=== PATIENT | female | born 2000 | race Two or more races ===

== ENCOUNTER → 2019-03-30 | Outpatient (CLI) | payer SELFPAY ==
--- NOTE | 2019-03-30 14:36 | RADIOLOGY REPORT (SQ) ---
EXAM DESCRIPTION: U/S OB 14+ TRNABD 1GES W/O DOP COMPLETED DATE/TIME: 03/30/2019 2:11 pm REASON FOR STUDY: Z34.82 ENCOUNTER FOR SUPRVSN OF NORMAL , SECOND TRIMESTER Z34.82 ENCOUNT ER FOR SUPRVSN OF NORMAL , SECOND TRI COMPARISON: None. TECHNIQUE: Static and Dynamic grayscale imaging performed of gravid uterus using transabdominal appr oach. Additional selected color Doppler and spectral images recorded. All stored on PACS. LIMITATIONS: None. FINDINGS: FETUSES SEEN:1 EGA: 16 weeks 2 days Calculated using BPD,FL,HC,AC documented on images. Clinical dates are 17 weeks 4 days. CRYSTAL: 09/12/2019 EFW: 150 grams PERCENTILE: 90 ABBEY: Adequate amount. PLACENTA: Posterior in location. Heterogeneous in echogenicity. PRESENTATION: Cephalic. ANATOMY: HEART RATE: 140 beats per minute. FOUR CHAMBER HEART: Not visualized. THREE VESSEL CORD: Not visualized. CORD INSERTION: Not visualized. KIDNEYS AND BLADDER: The kidneys are not visualized. Bladder is unremarkable. STOMACH: Visualized. Appears normal. SPINE: Not visualized. BRAIN AND LATERAL VENTRICLES: Not visualized. OTHER: No other significant finding. MATERNAL ADNEXA: Normal in appearance. CERVICAL LENGTH: 3.2 cm. Closed. OTHER: No other significant finding. IMPRESSION: LIVING INTRAUTERINE . ESTIMATED GESTATIONAL AGE 16 weeks 2 days. NO VISUALIZED ANOMALIES. Trimester of : Second trimester - 13 weeks 1 day to 27 weeks 6 days. TECHNICAL DOCUMENTATION: JOB ID: [id number] [employer]- All Rights Reserved Reading location - IP/workstation name: [email or web address]
== END ==
LOC: RAD 13:12
PROVIDERS: ATTEND Midwife
DX: Z34.82 Encounter for supervision of other normal pregnancy, second trimester (principal)
CPT/HCPCS: 76805

== ENCOUNTER → 2019-04-21 | Outpatient (CLI) | payer SELFPAY ==
--- NOTE | 2019-04-21 15:16 | RADIOLOGY REPORT (SQ) ---
EXAM DESCRIPTION: U/S OB 14+ TRNABD 1GES W/O DOP COMPLETED DATE/TIME: 04/21/2019 2:55 pm REASON FOR STUDY: Z34.82 ENCOUNTER FOR SUPRVSN OF NORMAL , SECOND TRIMESTER Z34.82 ENCOUNT ER FOR SUPRVSN OF NORMAL , SECOND TRI COMPARISON: 03/30/2019 TECHNIQUE: Static and Dynamic grayscale imaging performed of gravid uterus using transabdominal appr oach. Additional selected color Doppler and spectral images recorded. All stored on PACS. LIMITATIONS: None. FINDINGS: FETUSES SEEN:1 EGA: 19 weeks 2 days. Calculated using BPD,FL,HC,AC documented on images. Estimated clinical dates i s 20 weeks 5 days. CRYSTAL: 09/13/2019 EFW: 286 g grams PERCENTILE: Not applicable. Fetus less than or equal to 20 weeks gestation. LVP: 4.1 cm. PLACENTA: Posterior. GRADE: I PRESENTATION: Cephalic. ANATOMY: HEART RATE: 125 beats per minute. FOUR CHAMBER HEART: Visualized. THREE VESSEL CORD: Yes. CORD INSERTION: Visualized. KIDNEYS AND BLADDER: Visualized. Appear normal. STOMACH: Visualized. Appears normal. SPINE: Normal as visualized. BRAIN AND LATERAL VENTRICLES: Visualized. Appear normal. OTHER: No other significant finding. MATERNAL ADNEXA: Maternal ovaries not visualized. CERVICAL LENGTH: 4.0 cm. Closed. OTHER: No other significant finding. IMPRESSION: LIVING INTRAUTERINE . ESTIMATED GESTATIONAL AGE 19 WEEKS 2 DAYS. NO VISUALIZED ANOMALIES. Trimester of : Second trimester - 13 weeks 1 day to 27 weeks 6 days. TECHNICAL DOCUMENTATION: JOB ID: [id number] [employer]- All Rights Reserved Reading location - IP/workstation name: [email or web address]
== END ==
LOC: RAD 13:09
PROVIDERS: ATTEND Midwife
DX: Z34.82 Encounter for supervision of other normal pregnancy, second trimester (principal)
CPT/HCPCS: 76805

== ENCOUNTER 2019-08-28 22:09 | Outpatient (CLI) | payer SELFPAY ==
[2019-08-28 22:53] LABS: APPEARANCE,URINE CLEAR; BILIRUBIN,URINE NEGATIVE (NEGATIVE); COLOR,URINE STRAW; GLUCOSE, URINE NEGATIVE (NEGATIVE); KETONES,URINE NEGATIVE (NEGATIVE); LEUKOCYTE ESTERASE,URINE NEGATIVE (NEGATIVE); NITRITE,URINE NEGATIVE (NEGATIVE); PROTEIN,URINE NEGATIVE (NEGATIVE); URINE SPECIFIC GRAVITY 1.004; UROBILINOGEN,URINE NEGATIVE mg/dL (<2.0)
[2019-08-28 23:07] LABS: URINE AMPHETAMINES SCREEN NEGATIVE; URINE BARBITURATES SCREEN NEGATIVE; URINE BENZODIAZEPINES SCREEN NEGATIVE; URINE COCAINE SCREEN NEGATIVE; URINE MARIJUANA (THC) SCREEN NEGATIVE; URINE METHADONE SCREEN NEGATIVE; URINE PHENCYCLIDINE SCREEN NEGATIVE
--- NOTE | 2019-08-29 01:56 | Non Stress Test Report ---
Non Stress Test Datetime Report Generated by CPN: 08/29/2019 01:56 DEMOGRAPHIC EGA NST: 39.2 INDICATION Indication for Study (NST) Other: Ordered by provider URINE RESULTS Urine Protein, NST: Negative Urine Ketones - NST: Negative Urine Glucose - NST: Negative Urine Blood - NST: Negative MONITORING Monitor Explained: Monitor Explained; Test Explained; Patient Verbalized Understanding Time on Monitor: 08/29/2019 00:52 Time off Monitor: 08/29/2019 01:18 NST Duration: 26 NST INTERVENTIONS NST Interventions: PO Hydration Physician Notified NST: Dr. Castillo BABY A: [id number] BABY A Movement : Present Contraction Frequency : 2-6 FHR Baseline : 120 Accelerations : 15X15 Decelerations : None Variability : Moderate 6-25bpm NST Review: Meets Criteria for Reactive NST NST Review and Verified By : Nathen Lawrence RN NST Results: Reactive NST REPORT Report Trigger: Send Report
== END 2019-08-29 01:51 | disposition home or self-care (01) ==
LOC: LC 22:09
PROVIDERS: ATTEND Obstetrics & Gynecology Gynecology
PROC: 4A1HXCZ Monitoring of Products of Conception, Cardiac Rate, External Approach (ICD-10-PCS; principal; 2019-08-28)
DX: O47.1 False labor at or after 37 completed weeks of gestation (principal); Z3A.39 39 weeks gestation of pregnancy
CPT/HCPCS: 59025; 80307; 81005

== ENCOUNTER 2019-08-29 13:35 | Outpatient (CLI) | payer MEDICAID ==
--- NOTE | 2019-08-29 14:24 | Non Stress Test Report ---
Non Stress Test Datetime Report Generated by CPN: 08/29/2019 14:24 DEMOGRAPHIC Test Number: 2 EGA NST: 39.2 INDICATION Indication for Study (NST) Other: Vaginal spotting VITAL SIGNS Temperature - NST: 98.0 MONITORING Monitor Explained: Monitor Explained; Test Explained; Patient Verbalized Understanding Time on Monitor: 08/29/2019 13:58 Time off Monitor: 08/29/2019 14:19 NST Duration: 21 NST INTERVENTIONS NST Interventions: PO Hydration; Reposition Patient Physician Notified NST: Dr. Castillo BABY A: [id number] BABY A Movement : Present Contraction Frequency : Irregular FHR Baseline : 125 Accelerations : 15X15 Decelerations : None Variability : Moderate 6-25bpm NST Review: Meets Criteria for Reactive NST NST Review and Verified By : LASHAWN De La Cruz NST Results: Reactive NST REPORT Report Trigger: Send Report
[2019-08-29 14:26] LABS: APPEARANCE,URINE CLEAR; BILIRUBIN,URINE NEGATIVE (NEGATIVE); COLOR,URINE YELLOW; GLUCOSE, URINE NEGATIVE (NEGATIVE); KETONES,URINE NEGATIVE (NEGATIVE); LEUKOCYTE ESTERASE,URINE NEGATIVE (NEGATIVE); NITRITE,URINE NEGATIVE (NEGATIVE); PROTEIN,URINE NEGATIVE (NEGATIVE); UROBILINOGEN,URINE NEGATIVE mg/dL (<2.0)
[2019-08-29 14:49] LABS: URINE AMPHETAMINES SCREEN NEGATIVE; URINE BARBITURATES SCREEN NEGATIVE; URINE BENZODIAZEPINES SCREEN NEGATIVE; URINE COCAINE SCREEN NEGATIVE; URINE MARIJUANA (THC) SCREEN NEGATIVE; URINE METHADONE SCREEN NEGATIVE; URINE PHENCYCLIDINE SCREEN NEGATIVE
== END 2019-08-29 14:57 | disposition home or self-care (01) ==
LOC: LC 13:35
PROVIDERS: ATTEND Obstetrics & Gynecology Gynecology
PROC: 4A1HXCZ Monitoring of Products of Conception, Cardiac Rate, External Approach (ICD-10-PCS; principal; 2019-08-29)
DX: O26.853 Spotting complicating pregnancy, third trimester (principal); O47.1 False labor at or after 37 completed weeks of gestation; Z3A.39 39 weeks gestation of pregnancy
CPT/HCPCS: 59025; 80307; 81005

== ENCOUNTER 2019-09-05 08:36 | Inpatient (IN) | payer SELFPAY ==
--- NOTE | 2019-09-05 09:27 | Non Stress Test Report ---
Non Stress Test Datetime Report Generated by CPN: 09/05/2019 09:26 DEMOGRAPHIC EGA NST: 40.2 MONITORING Monitor Explained: Monitor Explained; Test Explained; Patient Verbalized Understanding Time on Monitor: 09/05/2019 08:50 Time off Monitor: 09/05/2019 09:25 NST Duration: 35 NST INTERVENTIONS NST Interventions: PO Hydration; Reposition Patient Physician Notified NST: DrUrban Tonia BABY A: [id number] BABY A Movement : Present Contraction Frequency : none FHR Baseline : 125 Accelerations : 15X15 Decelerations : None Variability : Moderate 6-25bpm NST Review: Meets Criteria for Reactive NST NST Review and Verified By : Jacquie Ríos RN NST Results: Reactive NST REPORT Report Trigger: Send Report
[2019-09-05 09:37] LABS: BACTERIA (WET MOUNT) 3+ BACTERIA SEEN; T.VAGINALIS (WET MOUNT) NO TRICHOMONAS SEEN; WBCS (WET MOUNT) 2+ WBCS SEEN; YEAST (WET MOUNT) NO YEAST SEEN
[2019-09-05] MEDS ORDERED: RINGERS SOLUTION,LACTATED 1,000 ML IV PRN (10:02)
[2019-09-05] MEDS ORDERED: RINGERS SOLUTION,LACTATED 1,000 ML IV ONE (10:02)
[2019-09-05] MEDS ORDERED: OXYTOCIN/NORMAL SALINE 20 UNIT/1,000 ML RTUINJ IV PRN ×2 (10:08→17:25)
[2019-09-05] MEDS ORDERED: OXYTOCIN 10 UNIT/ML VIAL ONE (10:37)
[2019-09-05] MEDS ORDERED: MISOPROSTOL 0.2 MG TABLET ONE (10:37)
[2019-09-05] MEDS ORDERED: OXYTOCIN/NORMAL SALINE 20 UNIT/1,000 ML RTUINJ ONE (10:38)
[2019-09-05] MEDS ORDERED: LIDOCAINE 1% INJ-PF (10 MG/ML) 30 ML SDV ONE (10:38)
[2019-09-05 10:43] LABS: ABSOLUTE BASOPHILS # (AUTO) 0.1 10^3/uL (0.0-0.2); ABSOLUTE EOSINOPHILS # (AUTO) 0.3 10^3/uL (0.0-0.6); ABSOLUTE LYMPHOCYTES (AUTO) 3.1 10^3/uL (0.5-4.7); ABSOLUTE MONOCYTES (AUTO) 0.7 10^3/uL (0.1-1.4); ABSOLUTE NEUT (AUTO) 5.6 10^3/uL (1.7-8.2); BASOPHILS % (AUTO) 0.7 % (0-2); EOSINOPHILS % (AUTO) 2.8 % (0-6); HEMATOCRIT 34.4 % (36.0-47.0); HEMOGLOBIN 11.3 g/dL (12.0-15.5); LYMPHOCYTES % (AUTO) 31.4 % (13-45); MEAN CORPUSCULAR HEMOGLOBIN 26.3 pg (27.0-33.4); MEAN CORPUSCULAR HGB CONC 32.8 g/dL (32.0-36.0); MEAN CORPUSCULAR VOLUME 80 fl (80-97); MONOCYTES % (AUTO) 7.7 % (3-13); PLATELET COUNT 181 10^3/uL (150-450); RED BLOOD COUNT 4.28 10^6/uL (3.72-5.28); RED CELL DISTRIBUTION WIDTH 14.8 % (11.5-14.0); SEGMENTED NEUTROPHILS % (AUTO) 57.4 % (42-78); TOTAL CELLS COUNTED % (AUTO) 100 %; WHITE BLOOD COUNT 9.8 10^3/uL (4.0-10.5)
[2019-09-05] MEDS ORDERED: GENTAMICIN SULFATE INJ 80 MG/2 ML VIAL ONE (10:53)
[2019-09-05] MEDS ORDERED: GENTAMICIN SULFATE INJ 80 MG/2 ML VIAL IV ONE (11:00)
[2019-09-05 11:01] LABS: CHLAM PCR NOT DETECTED (NOT DETECT)
--- NOTE | 2019-09-05 11:06 | RADIOLOGY REPORT (SQ) ---
EXAM DESCRIPTION: U/S OB LIMITED COMPLETED DATE/TIME: 09/05/2019 10:54 am REASON FOR STUDY: ABBEY, presentation COMPARISON: None. TECHNIQUE: Limited transabdominal grayscale ultrasound for evaluation of specific requested obstetri hossein parameters. LIMITATIONS: None. FINDINGS: EGA: 38 week 6 day. CRYSTAL: 09/13/2019. EFW: 3660 g. PERCENTILE: 60%. CERVICAL LENGTH: 3.9 cm. Closed. ABBEY: 9.0 cm. FHR: 132 beats per minute. PRESENTATION: Cephalic. PLACENTA: Posterior ANATOMY: Not assessed OTHER: No other significant findings. IMPRESSION: LIMITED OBSTETRICAL ULTRASOUND WITH MEASURED PARAMETERS DELINEATED ABOVE. Trimester of : Third trimester - 28 weeks to delivery. TECHNICAL DOCUMENTATION: JOB ID: [id number] 2010 [employer]- All Rights Reserved Reading location - IP/workstation name: [email or web address]
[2019-09-05] MEDS ORDERED: AMPICILLIN SODIUM 2 GM in NORMAL SALINE 100 ML IV SCH (12:00)
[2019-09-05 13:37] LABS: APPEARANCE,URINE SLIGHTLY-CLOUDY; BILIRUBIN,URINE NEGATIVE (NEGATIVE); COLOR,URINE STRAW; GLUCOSE, URINE NEGATIVE (NEGATIVE); KETONES,URINE NEGATIVE (NEGATIVE); LEUKOCYTE ESTERASE,URINE TRACE (NEGATIVE); NITRITE,URINE NEGATIVE (NEGATIVE); PROTEIN,URINE NEGATIVE (NEGATIVE); URINE SPECIFIC GRAVITY 1.003; UROBILINOGEN,URINE NEGATIVE mg/dL (<2.0)
--- NOTE | 2019-09-05 13:38 | Admission Physical ---
Datetime Report Generated by CPN: 09/05/2019 13:38 CURRENT ADMISSION Chief Complaint: Decreased Movement Indication for Induction: PROM Admit Impression : Term, Intrauterine ; No Active Labor; Ruptured Membranes Admit Plan: Admit to Unit; Initiate Labor Induction Protocol ALLERGIES Medication Allergies: No Medication Allergies: No Known Allergies (08/29/2019) Latex: No Latex Allergies OBSTETRICAL HISTORY EDC: 09/03/2019 00:00 : 2 Para: 1 Term: 1 : 0 SAB: 0 IAB: 0 Ectopic: 0 Livin Cesareans: 0 VBACs: 0 Multiple Births: 0 Gestational Diabetes: No Rh Sensitization: No Incompetent Cervix: No SUKHDEEP: No Infertility: No ART Treatment: No Uterine Anomaly: No IUGR: No Hx Previous C/S: No Macrosomia: No Hx Loss/Stillborn: No PIH: No Hx : No Placenta Previa/Abruption: No Depression/PP Depression: No PTL/PROM: No Post Hemorrhage: No Current Procedures: Ultrasound Obstetrical History Comments: G1: 2018, , girl 7 lbs G2: current SEE RECORDS Alcohol: No Marijuana : No Cocaine: No Other Illicit Drugs: No Cigarettes: Never Smoker. 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 Heart Disease: No Hosp/Surgery: No Autoimmune Disorder: No Anesthetic Complications: No Kidney Disease: No Abnormal Pap Smear: No Neuro/Epilepsy: No Psychiatric Disorders: No Other Medical Diseases: No Hepatitis/Liver Disease: No Significant Family History: No Varicosities/Phlebitis: No Trauma/Violence : No Thyroid Dysfunction: No INFECTIOUS HISTORY Gonorrhea: No Genital Herpes: No Chlamydia: No Tuberculosis: No Syphilis: No Hepatitis: No HIV/AIDS Exposure: No Rash or Viral Illness: No HPV: No Infectious History Comments: denies PHYSICAL EXAM General: Normal HEENT: Normal Neurologic: Normal Thyroid: Deferred Heart: Normal Lungs: Normal Breast: Deferred Back: Normal Abdomen: Normal Genitourinary Exam: Normal Extremities: Normal DTRs: Normal Pelvic Type: Adequate Vital Signs: Reviewed VAGINAL EXAM Dilatation: 3 Effacement: 50 Station: -3 Contraction Comments: irreg MEMBRANES Membranes: Ruptured FETUS A EGA: 40.2 Monitoring: External US FHR- Baseline: 125 Variability: Moderate 6-25bpm Accelerations: 15X15 Decelerations: None FHR Category: Category II Admit Comment: 18yo here for irreg ctx and green discharge for the last couple of days. H/o . declines pain medications at this time. She does not know when her membranes ruptured. Actimprom is positive. GBS negative. Amp/Gent due to unknown ROM. Anticipate . IOL reviewed. PLANS FOR LABOR AND DELIVERY Labor and Delivery: None Pain Management: None Feeding Preference: Breast Benefit of Breast Feed Discussed: Yes Circumcision: N/A INFORMED CONSENT Informed Consent Obtained: Vaginal Delivery; Induction of Labor; Risks, Benefits and Alternatives Discussed Signature: with User ID: [email or web address]
[2019-09-05] MEDS ORDERED: GENTAMICIN SULFATE INJ 80 MG/2 ML VIAL IV SCH (14:00)
[2019-09-05 14:04] LABS: URINE AMPHETAMINES SCREEN NEGATIVE; URINE BARBITURATES SCREEN NEGATIVE; URINE BENZODIAZEPINES SCREEN NEGATIVE; URINE COCAINE SCREEN NEGATIVE; URINE MARIJUANA (THC) SCREEN NEGATIVE; URINE METHADONE SCREEN NEGATIVE; URINE PHENCYCLIDINE SCREEN NEGATIVE
[2019-09-05] MEDS ORDERED: PROMETHAZINE HCL INJ 25 MG/1 ML VIAL IV PRN (17:25)
[2019-09-05] MEDS ORDERED: MEASLES,MUMPS&RUBELLA VACC/PF 0.5 ML VIAL SUBCUT PRN (17:25)
[2019-09-05] MEDS ORDERED: ACETAMINOPHEN 325 MG TABLET PO PRN (17:25)
[2019-09-05] MEDS ORDERED: PSEUDOEPHEDRINE HCL 30 MG TABLET PO PRN (17:25)
[2019-09-05] MEDS ORDERED: DIPHENHYDRAMINE HCL 25 MG CAPSULE PO PRN (17:25)
[2019-09-05] MEDS ORDERED: GLYCERIN/WITCH HAZEL LEAF 1 EACH MED..WIPE TP PRN (17:25)
[2019-09-05] MEDS ORDERED: ZOLPIDEM TARTRATE 5 MG TABLET PO PRN (17:25)
[2019-09-05] MEDS ORDERED: MAGNESIUM HYDROXIDE SUSP 30 ML UDCUP PO PRN (17:25)
[2019-09-05] MEDS ORDERED: DIPH/PERTUSS(ACELL)/TETANUS VAC/PF 0.5 ML SYR (>=10YO) IM PRN (17:25)
[2019-09-05] MEDS ORDERED: PROMETHAZINE HCL 25 MG SUPP.RECT PR PRN (17:25)
[2019-09-05] MEDS ORDERED: NA PHOS,M-B/NA PHOS,DI-BA (ADULT) 133 ML ENEMA PR PRN (17:25)
[2019-09-05] MEDS ORDERED: ACETAMINOPHEN WITH CODEINE #3 TABLET PO PRN ×2 (17:25)
[2019-09-05] MEDS ORDERED: DIBUCAINE 1% OINTMENT 28 GM TP PRN (17:25)
[2019-09-05] MEDS ORDERED: PROMETHAZINE HCL 25 MG TABLET PO PRN (17:25)
[2019-09-05] MEDS ORDERED: BENZOCAINE/MENTHOL AEROSOL SPRAY 56 ML TOP PRN (17:25)
[2019-09-05] MEDS ORDERED: BENZOCAINE/MENTHOL AEROSOL SPRAY 56 ML ONE (17:36)
[2019-09-05] MEDS ORDERED: IBUPROFEN 800 MG TABLET ONE (17:36)
[2019-09-05] MEDS ORDERED: MISOPROSTOL 0.1 MG TABLET PR ONE (17:47)
[2019-09-05] MEDS ORDERED: GENTAMICIN SULFATE 130 MG in DEXTROSE 5%-WATER 100 ML IV SCH (18:00)
--- NOTE | 2019-09-05 19:45 | Delivery Summary ---
Del Sum A-C Datetime Report Generated by CPN: 09/05/2019 19:45 DELIVERY PERSONNEL DELIVERY PERSONNEL: [id number] Delivery Doctor:: Katerina Randall MD Labor and Delivery Nurse:: Candy Ríos RN Rx Specialist/PLANT WRAPPER: Krystle Weldon, HOUSEKEEPING STAFF MATERNAL INFORMATION Delivery Anesthesia: None Medications After Delivery: Pitocin Drip 20 Units/1000ml NSS; Cytotec 1000mcg Per Rectum/Vagina Meds After Delivery Comment: pitocin 20 units in 1000mL nss Estimated Blood Loss (ml): 200 Delivery QBL: 250 Delivery QBL Comment: qbl final total 375ml Maternal Complications: None Provider Comments: VFI delivered in [place] presentation. No nuchal cord. Shoulders and body delivered without difficulty. Placenta delivered intact spontaneoulsy. Right labial laceration repaired with good hemostasis. FF at U. good hemsotasis. Mother and baby stable upon provider leaving the room LABOR SUMMARY EDC: 09/03/2019 00:00 No. Babies in Womb: 1 Attempted: No Labor Anesthesia: None LABOR INFORMATION Reason for Induction: Not Applicable Onset of Labor: 09/05/2019 16:18 Complete Dilatation: 09/05/2019 16:53 Oxytocin: Augmentation Group B Beta Strep: negative Steroids Given: None Reason Steroids Not Administered: Not Applicable MEMBRANES Membranes Rupture Method: Spontaneous STAGES OF LABOR Stage 1 hr: 0 Stage 1 min: 35 Stage 2 hr: 0 Stage 2 min: 1 Stage 3 hr: 0 Stage 3 min: 3 Total Time in Labor hr: 0 Total Time in Labor min: 39 VAGINAL DELIVERY Episiotomy: None Laceration #1: Perineal Laceration Extension #1: N/A Other Laceration: labial Laceration Repair: Yes Laceration Repair Note: right labial laceration. Sponge Count Correct: Yes Sharps Count Correct: Yes CSECTION DELIVERY Primary Indication: N/A Secondary Indication: N/A CSection Incidence: N/A Labor: N/A Elective: N/A CSection Incision: N/A BABY A INFORMATION Infant Delivery Date/Time: 09/05/2019 16:54 Method of Delivery: Vaginal Nurse Controlled Delivery: No Born in Route : No : N/A Forceps: N/A Vacuum Extraction: N/A Shoulder Dystocia : No PRESENTATION/POSITION BABY A Presentation: Cephalic Cephalic Presentation: Vertex Breech Presentation: N/A PLACENTA INFORMATION BABY A Placenta Delivery Time : 09/05/2019 16:57 Placenta Method of Delivery: Spontaneous Placenta Status: Delivered SCORES BABY A Heart Rate 1 min: >100 bpm Resp Effort 1 min: Good Cry Reflex Irritability 1 min: Cough or Sneeze or Pulls Away Muscle Tone 1 min: Active Motion Color 1 min: Body [place], Extremities Blue Resuscitation Effort 1 min: Tactile Stimulation SCORE 1 MIN: 9 Heart Rate 5 min: >100 bpm Resp Effort 5 min: Good Cry Reflex Irritability 5 min: Cough or Sneeze or Pulls Away Muscle Tone 5 min: Active Motion Color 5 min: Body [place], Extremities Blue Resuscitation Effort 5 min: N/A SCORE 5 MIN: 9 INFORMATION BABY A Gestational Age at Delivery: 40.2 Gestational Status: Full Term- 39- 40.6 Weeks Outcome : Liveborn Infant Condition : Stable Sex: Female IDENTIFICATION BABY A Verification Date/Time: 09/05/2019 17:22 ID Band Number: [id number] Mother's Name Verified: Yes RN Verifying : B Baidy RN Additional Verifying Personnel: M [place]oacano RN WEIGHT/LENGTH BABY A Birthweight (gm): 2915 Infant Weight (lb): 6 Weight (oz): 7 Length (in): 18.50 Length (cm): 46.99 CORD INFORMATION BABY A No. Cord Vessels: 3 Nuchal Cord : N/A Cord Blood Taken: Yes-For Storage (Mom's Blood type +) Suction: None ASSESSMENT BABY A Complications: None Physical Findings at Delivery: Within Normal Limits Respirations: Appears Normal Skin to Skin: Yes Grocery Bagger/ALS Called : No Care By: Jacquie Ríos RN Transferred To: Remains with Mother BABY B INFORMATION : N/A SIGNATURES Signature: with User ID: [email or web address]
[2019-09-05] MEDS: FERROUS SULFATE 325 MG TABLET PO SCH (20:17)
[2019-09-05] MEDS: DOCUSATE SODIUM 100 MG CAPSULE PO SCH (20:17)
[2019-09-05] MEDS: FAMOTIDINE 20 MG TABLET PO SCH (23:10)
[2019-09-05] MEDS: IBUPROFEN 800 MG TABLET PO SCH (23:43)
[2019-09-06] MEDS: IBUPROFEN 800 MG TABLET PO SCH ×3 (06:26→22:06)
[2019-09-06 08:28] LABS: HEMATOCRIT 31.1 % (36.0-47.0); HEMOGLOBIN 10.3 g/dL (12.0-15.5); MEAN CORPUSCULAR HEMOGLOBIN 26.5 pg (27.0-33.4); MEAN CORPUSCULAR HGB CONC 33.1 g/dL (32.0-36.0); MEAN CORPUSCULAR VOLUME 80 fl (80-97); PLATELET COUNT 174 10^3/uL (150-450); RED BLOOD COUNT 3.89 10^6/uL (3.72-5.28); RED CELL DISTRIBUTION WIDTH 14.7 % (11.5-14.0); WHITE BLOOD COUNT 12.5 10^3/uL (4.0-10.5)
[2019-09-06] MEDS: DOCUSATE SODIUM 100 MG CAPSULE PO SCH ×2 (09:27→17:18)
[2019-09-06] MEDS: SENNOSIDES/DOCUSATE 8.6-50 MG 1 EACH TABLET PO SCH (09:27)
[2019-09-06] MEDS: PRENATAL VITAMIN W DHA CAPSULE PO SCH (09:27)
[2019-09-06] MEDS: FERROUS SULFATE 325 MG TABLET PO SCH ×2 (09:27→17:18)
[2019-09-06] MEDS: FAMOTIDINE 20 MG TABLET PO SCH ×2 (09:27→22:06)
--- NOTE | 2019-09-06 09:31 | PDOC PROGRESS REPORT ---
Subjective-OB Progress Note for:: 09/06/19 Subjective: Laying in bed, holding baby, no c/o, , voiding, eating well, scant bleeding Physical Exam (OB) Vital Signs: Temp Pulse Resp BP Pulse Ox 97.8 F 81 16 120/67 98 09/06/19 07:29 09/06/19 07:29 09/06/19 07:29 09/06/19 07:29 09/06/19 07:29 Intake & Output 09/05/19 09/06/19 09/07/19 06:59 06:59 06:59 Weight 85.5 kg - Lochia Lochia Amount: Small 10-25 ml Lochia Color: Rubra/Red - Abdomen Description: Soft, Round Hernia Present: No Fundal Description: Firm, Midline Fundal Height: u/u - u/2 Objective-Diagnostic Laboratory: 09/06/19 08:21 09/05/19 09/05/19 09/05/19 10:27 10:27 12:48 WBC 9.8 RBC 4.28 Hgb 11.3 L Hct 34.4 L MCV 80 MCH 26.3 L MCHC 32.8 RDW 14.8 H Plt Count 181 Seg Neutrophils % 57.4 Urine Color STRAW Urine Appearance SLIGHTLY-CLOUDY Urine pH 7.0 Ur Specific [place] 1.003 Urine Protein NEGATIVE Urine Glucose (UA) NEGATIVE Urine Ketones NEGATIVE Urine Blood NEGATIVE Urine Nitrite NEGATIVE Ur Leukocyte Esterase TRACE H Blood Type AB POSITIVE Antibody Screen NEGATIVE 09/06/19 08:21 WBC 12.5 H RBC 3.89 Hgb 10.3 L Hct 31.1 L MCV 80 MCH 26.5 L MCHC 33.1 RDW 14.7 H Plt Count 174 Seg Neutrophils % Urine Color Urine Appearance Urine pH Ur Specific [place] Urine Protein Urine Glucose (UA) Urine Ketones Urine Blood Urine Nitrite Ur Leukocyte Esterase Blood Type Antibody Screen Assessment and Plan(PN) - Assessment and Plan (1) Vaginal delivery Is this a current diagnosis for this admission?: Yes (2) Limited care Qualifiers: Trimester: unspecified trimester Qualified Code(s): O09.30 - Supervision of with insufficient care, unspecified trimester Is this a current diagnosis for this admission?: Yes (3) Premature rupture of membranes (PROM) at term with onset of labor after 24 hours, antepartum Is this a current diagnosis for this admission?: Yes - Time Spent with Patient Time with patient: Less than 15 minutes - Disposition Anticipated Discharge: Home Within: within 24 hours
[2019-09-07] MEDS: IBUPROFEN 800 MG TABLET PO SCH (05:30)
[2019-09-07 07:55] VITALS: BP 122/71
[2019-09-07] MEDS: FERROUS SULFATE 325 MG TABLET PO SCH (09:39)
[2019-09-07] MEDS: FAMOTIDINE 20 MG TABLET PO SCH (09:39)
[2019-09-07] MEDS: PRENATAL VITAMIN W DHA CAPSULE PO SCH (09:39)
[2019-09-07] MEDS: DOCUSATE SODIUM 100 MG CAPSULE PO SCH (09:39)
[2019-09-07] MEDS: SENNOSIDES/DOCUSATE 8.6-50 MG 1 EACH TABLET PO SCH (09:39)
--- NOTE | 2019-09-07 10:44 | PDOC DISCHARGE SUMMARY ---
Impression - Admit/DC Date/PCP Admission Date/Primary Care Provider: 09/05/19 10:11 Discharge Date: 09/07/19 - Discharge Diagnosis (1) Limited care Is this a current diagnosis for this admission?: Yes (2) Obstetric labial laceration, delivered, current hospitalization Is this a current diagnosis for this admission?: Yes (3) Premature rupture of membranes (PROM) at term with onset of labor after 24 hours, antepartum Is this a current diagnosis for this admission?: Yes (4) Vaginal delivery Is this a current diagnosis for this admission?: Yes - Additional Information Resuscitation Status: Full Code Discharge Diet: Regular Discharge Activity: Balance Activity w/Rest, Pelvic Rest Referrals: [facility] [Provider Group] Home Medications: Vits96/Iron Fum/Folic [ Tablet] 1 each PO DAILY 08/29/19 Results Laboratory Results: WBC 12.5 10^3/uL (4.0-10.5) H 09/06/19 08:21 RBC 3.89 10^6/uL (3.72-5.28) 09/06/19 08:21 Hgb 10.3 g/dL (12.0-15.5) L 09/06/19 08:21 Hct 31.1 % (36.0-47.0) L 09/06/19 08:21 MCV 80 fl (80-97) 09/06/19 08:21 MCH 26.5 pg (27.0-33.4) L 09/06/19 08:21 MCHC 33.1 g/dL (32.0-36.0) 09/06/19 08:21 RDW 14.7 % (11.5-14.0) H 09/06/19 08:21 Plt Count 174 10^3/uL (150-450) 09/06/19 08:21 Lymph % (Auto) 31.4 % (13-45) 09/05/19 10:27 [place] % (Auto) 7.7 % (3-13) 09/05/19 10:27 Eos % (Auto) 2.8 % (0-6) 09/05/19 10:27 Baso % (Auto) 0.7 % (0-2) 09/05/19 10:27 Absolute Neuts (auto) 5.6 10^3/uL (1.7-8.2) 09/05/19 10:27 Absolute Lymphs (auto) 3.1 10^3/uL (0.5-4.7) 09/05/19 10:27 Absolute Monos (auto) 0.7 10^3/uL (0.1-1.4) 09/05/19 10:27 Absolute Eos (auto) 0.3 10^3/uL (0.0-0.6) 09/05/19 10:27 Absolute Basos (auto) 0.1 10^3/uL (0.0-0.2) 09/05/19 10:27 Seg Neutrophils % 57.4 % (42-78) 09/05/19 10:27 Urine Color STRAW 09/05/19 12:48 Urine Appearance SLIGHTLY-CLOUDY 09/05/19 12:48 Urine pH 7.0 (5.0-9.0) 09/05/19 12:48 Ur Specific [place] 1.003 09/05/19 12:48 Urine Protein NEGATIVE mg/dL (NEGATIVE) 09/05/19 12:48 Urine Glucose (UA) NEGATIVE mg/dL (NEGATIVE) 09/05/19 12:48 Urine Ketones NEGATIVE mg/dL (NEGATIVE) 09/05/19 12:48 Urine Blood NEGATIVE (NEGATIVE) 09/05/19 12:48 Urine Nitrite NEGATIVE (NEGATIVE) 09/05/19 12:48 Urine Bilirubin NEGATIVE (NEGATIVE) 09/05/19 12:48 Urine Urobilinogen NEGATIVE mg/dL (<2.0) 09/05/19 12:48 Ur Leukocyte Esterase TRACE (NEGATIVE) H 09/05/19 12:48 Urine Ascorbic Acid NEGATIVE (NEGATIVE) 09/05/19 12:48 Membranes Rupture POSITIVE (NEGATIVE) H 09/05/19 09:17 Bacteria (Wet Prep) 3+ BACTERIA SEEN 09/05/19 09:17 Trichomonas (Wet Prep) NO TRICHOMONAS SEEN 09/05/19 09:17 Vaginal WBC 2+ WBCS SEEN 09/05/19 09:17 Vaginal Yeast NO YEAST SEEN 09/05/19 09:17 Urine Opiates Screen NEGATIVE 09/05/19 12:48 Urine Methadone Screen NEGATIVE 09/05/19 12:48 Ur Barbiturates Screen NEGATIVE 09/05/19 12:48 Ur Phencyclidine Scrn NEGATIVE 09/05/19 12:48 Ur Amphetamines Screen NEGATIVE 09/05/19 12:48 U Benzodiazepines Scrn NEGATIVE 09/05/19 12:48 Urine Cocaine Screen NEGATIVE 09/05/19 12:48 U Marijuana (THC) Screen NEGATIVE 09/05/19 12:48 RPR NONREACTIVE (NONREACTIVE) 09/05/19 10:27 Chlamydia DNA (PCR) NOT DETECTED (NOT DETECT) 09/05/19 09:17 N.gonorrhoeae DNA (PCR) NOT DETECTED (NOT DETECT) 09/05/19 09:17 Blood Type AB POSITIVE 09/05/19 10:27 Antibody Screen NEGATIVE 09/05/19 10:27 Impressions: Obstetrics Ultrasound 09/05/19 10:06 IMPRESSION: LIMITED OBSTETRICAL ULTRASOUND WITH MEASURED PARAMETERS DELINEATED ABOVE. Trimester of : Third trimester - 28 weeks to delivery.
== END 2019-09-07 13:30 | disposition home or self-care (01) | DRG 807 ==
LOC: LC 08:36 → LR 10:11 → 2S 20:00
PROVIDERS: ADMIT Student in an Organized Health Care Education/Training Program; ATTEND Student in an Organized Health Care Education/Training Program
PROC: 10E0XZZ Delivery of Products of Conception, External Approach (ICD-10-PCS; principal; 2019-09-05)
PROC: 0HQ9XZZ Repair Perineum Skin, External Approach (ICD-10-PCS; 2019-09-05)
PROC: 3E0234Z Introduction of Serum, Toxoid and Vaccine into Muscle, Percutaneous Approach (ICD-10-PCS; 2019-09-07)
DX: O42.12 Full-term premature rupture of membranes, onset of labor more than 24 hours following rupture (principal); Z37.0 Single live birth; O70.0 First degree perineal laceration during delivery; Z3A.40 40 weeks gestation of pregnancy; Z23 Encounter for immunization
CPT/HCPCS: 36415; 76815; 80307; 81005; 84112; 85025; 85027; 86592; 86850; 86900; 86901; 87210; 87491; 87591; 90715; J0290; J1580; J2590; J3490; J7050; J7060

== ENCOUNTER 2020-07-29 09:50 | Emergency (ER) | payer SELFPAY ==
[2020-07-29 09:57] VITALS: BP 145/74
[2020-07-29 11:26] LABS: ABSOLUTE BASOPHILS # (AUTO) 0.1 10^3/uL (0.0-0.2); ABSOLUTE EOSINOPHILS # (AUTO) 0.3 10^3/uL (0.0-0.6); ABSOLUTE LYMPHOCYTES (AUTO) 2.7 10^3/uL (0.5-4.7); ABSOLUTE MONOCYTES (AUTO) 0.7 10^3/uL (0.1-1.4); BASOPHILS % (AUTO) 0.6 % (0-2); HEMATOCRIT 36.4 % (36.0-47.0); HEMOGLOBIN 11.7 g/dL (12.0-15.5); LYMPHOCYTES % (AUTO) 31.2 % (13-45); MEAN CORPUSCULAR HEMOGLOBIN 23.7 pg (27.0-33.4); MEAN CORPUSCULAR HGB CONC 32.2 g/dL (32.0-36.0); MEAN CORPUSCULAR VOLUME 74 fl (80-97); MONOCYTES % (AUTO) 8.3 % (3-13); PLATELET COUNT 241 10^3/uL (150-450); RED BLOOD COUNT 4.93 10^6/uL (3.72-5.28); RED CELL DISTRIBUTION WIDTH 17.2 % (11.5-14.0); SEGMENTED NEUTROPHILS % (AUTO) 56.9 % (42-78); TOTAL CELLS COUNTED % (AUTO) 100 %; WHITE BLOOD COUNT 8.8 10^3/uL (4.0-10.5)
[2020-07-29 11:42] LABS: APPEARANCE,URINE CLEAR; BILIRUBIN,URINE NEGATIVE (NEGATIVE); COLOR,URINE YELLOW; GLUCOSE, URINE NEGATIVE (NEGATIVE); KETONES,URINE NEGATIVE (NEGATIVE); LEUKOCYTE ESTERASE,URINE NEGATIVE (NEGATIVE); NITRITE,URINE NEGATIVE (NEGATIVE); PROTEIN,URINE NEGATIVE (NEGATIVE); URINE SPECIFIC GRAVITY 1.019; UROBILINOGEN,URINE NEGATIVE mg/dL (<2.0)
[2020-07-29 11:47] LABS: ALBUMIN 4.1 g/dL (3.5-5.0); ALKALINE PHOSPHATASE 104 U/L (38-126); ANION GAP 7 (5-19); ASPARTATE AMINO TRANSFERASE 20 U/L (14-36); BILIRUBIN,TOTAL 0.4 mg/dL (0.2-1.3); BLOOD UREA NITROGEN 9 mg/dL (7-20); CALCIUM 9.5 mg/dL (8.4-10.2); CARBON DIOXIDE 27 mmol/L (22-30); CHLORIDE 103 mmol/L (98-107); GLUCOSE 92 mg/dL (75-110); TOTAL PROTEIN 7.5 g/dL (6.3-8.2)
--- NOTE | 2020-07-29 12:07 | RADIOLOGY REPORT (SQ) ---
EXAM DESCRIPTION: U/S [id number] TRNABD 1GES W/ODOP IMAGES COMPLETED DATE/TIME: 07/29/2020 11:19 am REASON FOR STUDY: 14wpreg, bleeding since 07/23/20, 3 pads/day COMPARISON: None. TECHNIQUE: Transabdominal static and realtime grayscale images acquired of the pelvis. Additional se lected spectral and color Doppler images recorded. All images stored on PACs. CLINICAL AGE: 13 weeks 5 days BHCG: Not available. LIMITATIONS: None. FINDINGS: UTERUS: No visualized intrauterine . Gestational sac equivalent to 10 weeks 2 da ys but without pole. 4.6 cm MSd RIGHT ADNEXA: Normal ovary with normal vascular flow. No adnexal free fluid. No adnexal masses. LEFT ADNEXA: Normal ovary with normal vascular flow. No adnexal free fluid. No adnexal masses. FREE FLUID: None. OTHER: No other significant finding. IMPRESSION: Anembryonic intrauterine . bHCG LEVEL NOT AVAILABLE FOR CORRELATION WITH US FINDINGS. TECHNICAL DOCUMENTATION: JOB ID: [id number] 2010 [employer]- All Rights Reserved Reading location - IP/workstation name: [email or web address]
--- NOTE | 2020-07-29 12:18 | ER Document Report ---
ED General - General Chief Complaint: Vag Bleeding, +preg <12wks Stated Complaint: VAGINAL BLEEDING/14 WKS PREG Time Seen by Provider: 07/29/20 10:30 Primary Care Provider: DAVONTE VARGAS MD [ACTIVE STAFF] - Follow up as needed MACY WRIGHT MD [ACTIVE PROVISIONAL STAFF] - 07/31/20 TRAVEL OUTSIDE OF THE [place] IN LAST 30 DAYS: No - HPI Notes: 19-year-old female G4, P2, 14 weeks presents to the emergency room for vaginal bleeding that started on July 23, 2020. Patient is Macanese-speaking only and used [employer] for communication. Patient reports she goes through 3 pads a day. Denies any trauma or fall. Patient states that she is not on any prenatals, has not established with an HAND WOOD SANDER. Patient reports she is having some pelvic pain. Denies fevers, chills, chest pain,palpitations, shortness of breath, dyspnea, nausea, vomiting, diarrhea, abdominal pain, hematuria,blurred vision, double vision, loss of vision, speech changes, LH, dizziness, syncope, headaches, wheezing, ST, URI, neck pain, weakness, bowel or bladder dysfunction, saddle anesthesia, numbness or tingling in bilateral upper or lower extremities equally, muscle paralysis, weakness in bilateral upper or lower extremities equally or rash. Denies IV drug use. - Related Data Allergies/Adverse Reactions: No Known Allergies Allergy (Verified 07/29/20 14:26) Past Medical History - General Information source: Patient - Social History Smoking Status: Never Smoker Family History: Reviewed & Not Pertinent Review of Systems - Review of Systems Constitutional: No symptoms reported EENT: No symptoms reported Cardiovascular: No symptoms reported Respiratory: No symptoms reported Gastrointestinal: No symptoms reported Genitourinary: No symptoms reported Female Genitourinary: See HPI Musculoskeletal: No symptoms reported Skin: No symptoms reported Hematologic/Lymphatic: No symptoms reported Neurological/Psychological: No symptoms reported Physical Exam - Vital signs Vitals: Temp Pulse Resp BP Pulse Ox 98.7 F 73 16 145/74 H 98 07/29/20 09:55 07/29/20 09:55 07/29/20 09:55 07/29/20 09:55 07/29/20 09:55 - Notes Notes: MEDICATIONS: I agree with the patient medications as charted by the RN. ALLERGIES: I agree with the allergies as charted by the RN. PAST MEDICAL HISTORY/PAST SURGICAL HISTORY: Reviewed and agree as charted by RN. SOCIAL HISTORY: Reviewed and agree as charted by RN. FAMILY HISTORY: No significant familial comorbid conditions directly related to patient complaint EXAM: Reviewed vital signs as charted by RN. PHYSICAL EXAMINATION: reviewed vital signs by RN GENERAL: Well-appearing, well-nourished and in no acute distress. HEAD: Atraumatic, normocephalic. EYES: Pupils equal round and reactive to light, extraocular movements intact, conjunctiva are normal. ENT: Nares patent, oropharynx clear without exudates. Moist mucous membranes. NECK: Normal range of motion, supple without lymphadenopathy LUNGS: Breath sounds clear to auscultation bilaterally and equal. No wheezes rales or rhonchi. HEART: Regular rate and rhythm without murmurs ABDOMEN: Soft, nontender, nondistended abdomen. No guarding, no rebound. No masses appreciated. Female : deferred/refused Musculoskeletal: Normal range of motion, no pitting or edema. No cyanosis. NEUROLOGICAL: Cranial nerves grossly intact. Normal speech, normal gait. No rmal sensory, motor exams PSYCH: Normal mood, normal affect. SKIN: Warm, Dry, normal turgor, no rashes or lesions noted. Course - Re-evaluation Re-evalutation: 07/29/20 14:28 Afebrile vital stable no distress. Nurses notes reviewed. Patient presents with a mild amount of vaginal bleeding in the setting of 2nd trimester. Trans vaginal ultrasound is unable to visualize an intrauterine at this time. Quantitative beta hCG below the zone of to margination at 500 for being 14 weeks . No active bleeding at time of presentation. She is Rh positive. Patient's abdominal exam is otherwise benign without any focal tenderness. I do not suspect an acute appendicitis, pyelonephritis, cystitis, or bowel obstruction. At this time I have informed the patient that she needs to return to the emergency department or the women's clinic in 48 hours for recheck of her quantitative beta hCG to assess whether or not this is a normal or a possible ectopic .At this time will discharge with return precautions and follow-up recommendations. Verbal discharge instructions given a the bedside and opportunity for questions given. Medication warnings reviewed. Patient is in agreement with this plan and has verbalized understanding of return precautions and the need for primary care follow-up in the next 24-72 hours. 07/29/20 15:39 - Vital Signs Vital signs: Temp Pulse Resp BP Pulse Ox 98.7 F 73 16 145/74 H 98 07/29/20 09:55 07/29/20 09:55 07/29/20 09:55 07/29/20 09:55 07/29/20 09:55 - Laboratory Results Result Diagrams: 07/29/20 11:07 07/29/20 11:07 Laboratory Results Interpreted: 07/29/20 07/29/20 07/29/20 11:07 11:07 11:07 Hgb 11.7 L MCV 74 L MCH 23.7 L RDW 17.2 H Sodium 136.7 L Beta HCG, Quant 5009.20 H Urine Blood LARGE H Critical Laboratory Results Reviewed: No Critical Results - Radiology Results Critical Radiology Results Reviewed: No Critical Results Discharge - Discharge Clinical Impression: Vaginal bleeding in , Limited care, Miscarriage Condition: Stable Disposition: HOME, SELF-CARE Instructions: Miscarriage ([facility]), Miscarriage Impending ([facility]) Additional Instructions: You do need to have a repeat serum hCG and ultrasound in 48 hours for reevaluation. Advised pelvic rest, no sexual intercourse. Please follow-up with your HAND WOOD SANDER within the next 48 to 48 hours or you can return to the emergency room if you are unable to get a hold of a HAND WOOD SANDER. Please follow closely with your primary care HAND WOOD SANDER. Please return if you develop severe abdominal pain, bleeding that goes through more than 2 pads for more than 2 hours, pass out, or have any other symptoms that are concerning to you. Please follow-up closely with your OBGYN regarding todays visit. Return immediately for any new or worsening symptoms. Follow up with primary care provider, call tomorrow to make followup appointment. Referrals: DAVONTE VARGAS MD [ACTIVE STAFF] - Follow up as needed MACY WRIGHT MD [ACTIVE PROVISIONAL STAFF] - 07/31/20 Print Language: Macanese
== END 2020-07-29 12:36 | disposition home or self-care (01) ==
LOC: ER 09:50
DX: O03.9 Complete or unspecified spontaneous abortion without complication (principal); O09.32 Supervision of pregnancy with insufficient antenatal care, second trimester
CPT/HCPCS: 36415; 76801; 80053; 81001; 84702; 85025; 86900; 86901; 99284

== ENCOUNTER 2020-07-29 14:11 | Emergency (ER) | payer SELFPAY ==
[2020-07-29] MEDS ORDERED: ACETAMINOPHEN 325 MG TABLET PO ONE (14:32)
[2020-07-29] MEDS ORDERED: ACETAMINOPHEN 325 MG TABLET ONE (14:32)
--- NOTE | 2020-07-29 14:37 | ER Document Report ---
ED General - General Chief Complaint: Vaginal Bleeding Stated Complaint: VAGINAL BLEEDING Time Seen by Provider: 07/29/20 14:13 Primary Care Provider: DAVONTE VARGAS MD [ACTIVE STAFF] - Follow up as needed MACY WRIGHT MD [ACTIVE PROVISIONAL STAFF] - 07/31/20 TRAVEL OUTSIDE OF THE [place] IN LAST 30 DAYS: No - HPI Notes: 19-year-old female G4, P2, 14 weeks presents to the emergency room for vaginal bleeding that started on July 23, 2020, was seen in the emergency room and had a complete work-up, was told she was having a miscarriage with using the hot walker, she passed a large clot and she was having pelvic pain so this is what caused her to call EMS to come back to [facility]. Patient was seen by the same provider an hour or so prior. Denies any new trauma, fall, new abdominal pain. patient is Vietnamese-speaking only and used [employer] for communication. Patient reports she goes through 3 pads a day. Denies any trauma or fall. Patient states that she is not on any prenatals, has not established with an SALES OPERATIONS ASSOCIATE. Patient reports she is having some pelvic pain. Denies fevers, chills, chest pain,palpitations, shortness of breath, dyspnea, nausea, vomiting, diarrhea, new abdominal pain since last seen, hematuria,blurred vision, double vision, loss of vision, speech changes, LH, dizziness, syncope, headaches, wheezing, ST, URI, neck pain, weakness, bowel or bladder dysfunction, saddle anesthesia, numbness or tingling in bilateral upper or lower extremities equally, muscle paralysis, weakness in bilateral upper or lower extremities equally or rash. Denies IV drug use. - Related Data Allergies/Adverse Reactions: No Known Allergies Allergy (Verified 07/29/20 14:26) Past Medical History - General Information source: Patient - Social History Smoking Status: Unknown if Ever Smoked Family History: Reviewed & Not Pertinent Review of Systems - Review of Systems Constitutional: No symptoms reported EENT: No symptoms reported Cardiovascular: No symptoms reported Respiratory: No symptoms reported Gastrointestinal: No symptoms reported Genitourinary: No symptoms reported Female Genitourinary: See HPI Musculoskeletal: No symptoms reported Skin: No symptoms reported Hematologic/Lymphatic: No symptoms reported Neurological/Psychological: No symptoms reported Physical Exam - Vital signs Vitals: Temp 97.7 F 07/29/20 14:12 - Notes Notes: MEDICATIONS: I agree with the patient medications as charted by the RN. ALLERGIES: I agree with the allergies as charted by the RN. PAST MEDICAL HISTORY/PAST SURGICAL HISTORY: Reviewed and agree as charted by RN. SOCIAL HISTORY: Reviewed and agree as charted by RN. FAMILY HISTORY: No significant familial comorbid conditions directly related to patient complaint EXAM: Reviewed vital signs as charted by RN. PHYSICAL EXAMINATION: reviewed vital signs by RN GENERAL: Well-appearing, well-nourished and in no acute distress. HEAD: Atraumatic, normocephalic. EYES: Pupils equal round and reactive to light, extraocular movements intact, conjunctiva are normal. ENT: Nares patent, oropharynx clear without exudates. Moist mucous membranes. NECK: Normal range of motion, supple without lymphadenopathy LUNGS: Breath sounds clear to auscultation bilaterally and equal. No wheezes rales or rhonchi. HEART: Regular rate and rhythm without murmurs ABDOMEN: Soft, nontender, nondistended abdomen. No guarding, no rebound. No masses appreciated. Female : deferred/refused Musculoskeletal: Normal range of motion, no pitting or edema. No cyanosis. NEUROLOGICAL: Cranial nerves grossly intact. Normal speech, normal gait. Normal sensory, motor exams PSYCH: Normal mood, normal affect. SKIN: Warm, Dry, normal turgor, no rashes or lesions noted. Course - Re-evaluation Re-evalutation: 07/29/20 16:41 Afebrile vital stable no distress. Nurses notes reviewed. With the use of [employer] translation, discussed with patient that due to her being 14 weeks and unfortunately miscarrying, she is going to have cramping, passage of products of conception/clots. Spent well over 15 minutes discussing this with the hot walker and the patient so she did understand that she does absolutely have to follow-up with an OB within 2 days and likely will need a D&C. Patient did not understand that with her miscarriage she would be expecting a lot of cramping and vaginal tissue to be passed, this is what brought her back to the emergency room . discussed not being sexually active for at least a week and not to get for at least 3 months. Patient denied any new abdominal pain, any trauma or falls since last seen a little bit over an hour and a half ago: Transvaginal ultrasound is unable to visualize an intrauterine at this time. Quantitative beta hCG below the zone of to margination at 500 for being 14 weeks . She is Rh positive. Patient's abdominal exam is otherwise benign without any focal tenderness. I do not suspect an acute appendicitis, pyelonephritis, cystitis, or bowel obstruction. At this time I have informed the patient that she needs to return to the emergency department or the women's clinic in 48 hours for recheck of her quantitative beta hCG to assess whether or not this is a normal or a possible ectopic .At this time will discharge with return precautions and follow-up recommendations. Verbal discharge instructions given a the bedside and opportunity for questions given. Medication warnings reviewed. Patient is in agreement with this plan and has verbalized understanding of return precautions and the need for primary care follow-up in the next 24-72 hours. - Vital Signs Vital signs: Temp Pulse Resp BP Pulse Ox 97.7 F 87 18 130/74 H 100 07/29/20 14:47 07/29/20 14:47 07/29/20 14:47 07/29/20 14:47 07/29/20 14:47 - Laboratory Results Critical Laboratory Results Reviewed: No Critical Results - Radiology Results Critical Radiology Results Reviewed: No Critical Results Discharge - Discharge Clinical Impression: Miscarriage Condition: Stable Disposition: HOME, SELF-CARE Instructions: Miscarriage ([facility]), Miscarriage Impending ([facility]) Additional Instructions: Miscarriage Impending You have been evaluated for a possible miscarriage. At this time, it appears that the fetus has stopped growing. A miscarriage occurs when the fetus is abnormal. There is no medicine or treatment to prevent it. If bleeding is not severe, and if your pain can be controlled with medicine, you could complete the miscarriage at home. If that's not practical, or if the miscarriage doesn't progress spontaneously, we will arrange for a D&C procedure. You should rest in bed. Do not douche or have sex for at least a week, or until OK'd by the doctor. If you believe you've passed the fetus, collect it in a zip-lock plastic bag. Be sure to follow up with your doctor. Call the doctor or return for re- examination if there is an increase in bleeding or cramping, extreme weakness, fainting, fever, or passage of tissue. Return immediately for any new or worsening symptoms. F Referrals: DAVONTE VARGAS MD [ACTIVE STAFF] - Follow up as needed MACY WRIGHT MD [ACTIVE PROVISIONAL STAFF] - 07/31/20
[2020-07-29 14:47] VITALS: BP 130/74
== END 2020-07-29 14:45 | disposition home or self-care (01) ==
LOC: ER 14:11
DX: O03.9 Complete or unspecified spontaneous abortion without complication (principal)
CPT/HCPCS: 99283